=== PATIENT | male | born 1960 ===

== ENCOUNTER 2024-09-10 06:25 | Outpatient (CLI) | payer OTHER ==
[2024-09-10 08:00] LABS: BASO % 1.2 % (0.1-1.2); EOS # 0.18 (0.04-0.54); EOS % 3.6 % (0.7-7.0); LYMPH # 1.76 (1.18-3.74); LYMPH % 35.0 % (19.3-53.1); MEAN PLATELET VOLUME 11.40 fl (9.4-12.4); MONO # 0.38 (0.24-0.82); MONO % 7.6 % (4.7-12.5); NEUT # 2.64 (1.56-6.13); NEUT % 52.4 % (34.0-71.1); RED CELL DISTRIBUTION WIDTH 12.4 % (11.6-14.4)
[2024-09-10 08:05] LABS: URINE APPEARANCE Clear; URINE BILIRRUBIN Negative (NEGATIVE); URINE BLOOD Negative; URINE COLOR Yellow; URINE GLUCOSE Negative (NEGATIVE); URINE KETONE Negative (NEGATIVE); URINE LEUKOCYTE Negative; URINE NITRATE Negative; URINE PROTEIN Negative (NEGATIVE); URINE UROBILINOGEN 0.2 E.U./dl
[2024-09-10 08:08] LABS: URINE BACTERIA 9.5 uL (0.0-1933)
[2024-09-10 08:13] LABS: URINE CAST 0.00 uL (0.0-1.40); URINE EPITHELIAL CELLS 1.2 uL (0.0-38.8); URINE RBC 1.6 uL (0.0-20.8); URINE WBC 1.6 uL (0.0-23.2)
[2024-09-10 08:33] LABS: INR 1.06
[2024-09-10 08:59] LABS: ALT/SGPT 30.0 U/L (12-78); AST/SGOT 16.0 U/L (15-37); BILIRUBIN TOTAL 1.0 mg/dL (0.3-1.2); BUN CREA RATIO 17.0 (7.0-25.0); CREATININE SERUM 1.17 mg/dL (0.70-1.30); GFR 63.38; GLOBULINA 2.9 G/DL (2.4-3.5); GLUCOSE FASTING 101.0 mg/dL (65-100); OSMOLALITY SERUM 288.0 MOSM/KG (275-295)
== END 2024-09-10 06:29 | disposition home or self-care (01) ==
LOC: LAB 06:25
PROVIDERS: ATTEND Surgery
DX: C73 Malignant neoplasm of thyroid gland (principal); E05.00 Thyrotoxicosis with diffuse goiter without thyrotoxic crisis or storm; E21.0 Primary hyperparathyroidism; Z13.83 Encounter for screening for respiratory disorder NEC

== ENCOUNTER 2024-09-18 07:15 | Inpatient (IN) | payer OTHER ==
[~2024-09-18] VITALS: Ht 177.8 cm; Wt 97.5 kg
[2024-09-18] MEDS ORDERED: PLAVIX75 MG PO (08:43)
[2024-09-18] MEDS ORDERED: PROSCAR5 MG PO (08:43)
[2024-09-18] MEDS ORDERED: NORVASC5 MG PO (08:44)
[2024-09-18] MEDS ORDERED: COZAAR100 MG PO (08:44)
[2024-09-18] MEDS ORDERED: TOPROL XL50 M1 PO (08:44)
[2024-09-18] MEDS ORDERED: CARDURA XL4 MG PO (08:44)
[2024-09-18] MEDS ORDERED: ROSUVASTATIN CA20 MG PO (08:44)
[2024-09-18] MEDS ORDERED: PROTONIX40 MG PO (08:45)
[2024-09-18] MEDS ORDERED: METHIMAZOLE10 MG PO (08:45)
[2024-09-18 08:46] VITALS: BP 150/80
[2024-09-25] MEDS ORDERED: DEXAMETHASONE SODIUM PHOSPHATE 4 MG/ML VIAL IV ONE (08:00)
[2024-09-25] MEDS ORDERED: ENALAPRILAT DIHYDRATE 1.25 MG/ML VIAL IV PRN (11:45)
[2024-09-25] MEDS ORDERED: ONDANSETRON HCL 2 MG/ML VIAL IV PRN (11:45)
[2024-09-25] MEDS ORDERED: MORPHINE SULFATE 4 MG/ML VIAL IV ONE (13:00)
[2024-09-25 14:57] VITALS: BP 161/85; O2SAT 98
[2024-09-25] MEDS ORDERED: CALCIUM CARBONATE/VITAMIN D3 1 TAB TABLET PO SCH (17:00)
[2024-09-25] MEDS ORDERED: TRAMADOL HCL 50 MG TABLET PO SCH (17:00)
[2024-09-25] MEDS ORDERED: LIDOCAINE HCL 30 ML,MAG HYDROX/ALUMINUM HYD/SIMETH 30 ML,DIPHENHYDRAMINE HCL 75 MG MM SCH (17:00)
[2024-09-25] MEDS ORDERED: PANTOPRAZOLE SODIUM 40 MG TABLET.DR PO NR (17:00)
[2024-09-25] MEDS ORDERED: CYCLOBENZAPRINE HCL 5 MG TABLET PO SCH (17:00)
[2024-09-25] MEDS ORDERED: ACETAMINOPHEN 500 MG GEL..CAP PO SCH (17:00)
[2024-09-25 17:09] VITALS: BP 157/80; O2SAT 97
[2024-09-25] MEDS ORDERED: PANTOPRAZOLE SODIUM 40 MG/VIAL VIAL IV PUSH SCH (21:00)
[2024-09-26 00:30] VITALS: BP 144/76; O2SAT 98
[2024-09-26] MEDS ORDERED: LEVOTHYROXINE SODIUM 150 MCG TABLET PO SCH (06:00)
[2024-09-26] MEDS ORDERED: FINASTERIDE 5 MG TABLET PO SCH (09:00)
[2024-09-26] MEDS ORDERED: ROSUVASTATIN CALCIUM 10 MG TABLET PO SCH (09:00)
[2024-09-26] MEDS ORDERED: PANTOPRAZOLE SODIUM 40 MG TABLET.DR PO SCH (09:00)
[2024-09-26] MEDS ORDERED: LOSARTAN POTASSIUM 100 MG TABLET PO SCH (09:00)
[2024-09-26] MEDS ORDERED: AMLODIPINE BESYLATE 5 MG TABLET PO SCH (09:00)
[2024-09-26] MEDS ORDERED: DOXAZOSIN MESYLATE 4 MG TABLET PO SCH (09:00)
[2024-09-26] MEDS ORDERED: METOPROLOL SUCCINATE 50 MG TAB.SR.24H PO SCH (09:00)
[2024-09-26 09:22] VITALS: BP 155/66; O2SAT 97
== END 2024-09-26 15:21 | disposition home or self-care (01) | DRG 627 ==
LOC: EDUNIT# 07:15 → SURH 09-25 07:00 → O/R 09-25 09:49 → SURH 09-25 12:43
PROVIDERS: ADMIT Surgery; ATTEND Surgery
PROC: 0GBR0ZZ Excision of Parathyroid Gland, Open Approach (ICD-10-PCS; 2024-09-25)
PROC: 0GTH0ZZ Resection of Right Thyroid Gland Lobe, Open Approach (ICD-10-PCS; principal; 2024-09-25 07:00)
DX: C73 Malignant neoplasm of thyroid gland (principal); E05.00 Thyrotoxicosis with diffuse goiter without thyrotoxic crisis or storm; E21.0 Primary hyperparathyroidism